=== PATIENT | female | born 1985 | race Caucasian/White ===

== ENCOUNTER 2017-10-25 13:47 | Emergency (ER) | payer BC ==
[2017-10-25 14:19] LABS: #Lymphocytes 0.6 thou/uL (1.20-3.40); #Monocytes 0.3 thou/uL (0.11-0.59); #Neutrophils 6.6 thou/uL (1.40-6.50); %Basophils 0.6 % (0.0-1.0); %Eosinophils 0.3 % (0.0-10.0); %Lymphocytes 7.5 % (21.0-51.0); %Monocytes 3.9 % (0.0-10.0); %Neutrophils 87.7 % (42.0-75.0); Hemoglobin 11.4 g/dL (12.0-16.0); Mean Corpuscular HGB CONC 32.9 g/dL (32.0-36.0); Mean Corpuscular Hemoglobin 30.8 pg (27.0-31.0); Mean Corpuscular Volume 93.7 fL (78.0-98.0); Mean Platelet Volume 6.8 fL (7.4-10.4); Platelet Count 235 thou/uL (130-400); RBC Distribution Width 11.3 % (11.5-14.5); Red Blood Cell (RBC) Count 3.71 mill/uL (4.20-5.40); White Blood Cell (WBC) Count 7.6 thou/uL (4.8-10.8)
[2017-10-25 14:27] LABS: Base Excess-Venous -3.2 mmol/L (0 (+/- 2.5)); Bicarbonate (HCO3v) 18.8 mmol/L (1.0-85.0); CO2 Tension (PvCO2) 24.7 mmHg (41.0-51.0); Calcium, Ionized 1.15 mmol/L (1.12-1.32); Hemoglobin - Calc 11.9 g/dL (12.0-18.0); O2 Tension (PvO2) 33.9 mmHg (35.0-45.0); T. Carbon Dioxide 19.5 mmol/L (1.0-85.0); pH (Venous) 7.488 (7.35-7.45); vO2 Saturation-calc 72.2 % (94-98)
[2017-10-25 14:36] LABS: ALT (SGPT) 18 U/L (8-55); AST (SGOT) 20 U/L (5-34); Albumin 4.2 g/dL (3.5-5.0); Alkaline Phosphatase 40 U/L (40-150); Anion Gap 14 mmol/L (10-20); BUN (Urea Nitrogen) 9 mg/dL (7.0-18.7); Bilirubin, Total 1.1 mg/dL (0.2-1.2); Calc. Creatinine Clearance 0 mL/min (70-130); Calcium 9.3 mg/dL (7.8-10.44); Carbon Dioxide 20 mmol/L (22-29); Chloride 105 mmol/L (98-107); Estimated GFR-MDRD 84; Globulin 2.1 g/dL (2.4-3.5); Glucose 91 mg/dL (70-105); Potassium 3.1 mmol/L (3.5-5.1); Protein, Total 6.3 g/dL (6.0-8.3); Sodium 136 mmol/L (136-145)
[2017-10-25 14:52] LABS: Pregu Control Background? CLEAR/WHITE (CLR/WHITE); Pregu Control Bar Appear? YES (CONTROL BAR)
[2017-10-25 14:53] LABS: Pregnancy Test - Urine (BHCG) Negative (Negative)
[2017-10-25 14:55] LABS: Bilirubin Negative (Negative); Blood, Urine Trace (Negative); Clarity Clear (Clear); Glucose, Urine (Dipstick) Negative (Negative); Leukocyte Negative (Negative); Nitrite Negative (Negative); Protein, Urine (Dipstick) Negative (Neg-Trace); Urobilinogen 0.2 mg/dL (0.2-1.0); pH, Urine 7.5 (5.0-9.0)
[2017-10-25 15:00] LABS: Bacteria/HPF None Seen HPF (None Seen); Crystals/HPF None Seen HPF (Negative); Hyaline Casts/LPF NONE SEEN LPF (0-3 Hyaline); Other Casts/LPF None Seen LPF (0-3 Hyaline); Oval Fat Bodies/HPF None Seen HPF (None Seen); RBC/HPF None Seen HPF (0-3); Renal Epithelial None Seen HPF (0-3); Sperm/HPF None Seen HPF (None Seen); Squamous Epithelial 0-3 HPF (0-3); Transitional Epithelial NONE SEEN HPF (0-3); Trichomonas/HPF None Seen HPF (None Seen); WBC/HPF None Seen HPF (0-3); Yeast-All Forms None Seen HPF (None Seen)
[2017-10-25] MEDS ORDERED: Promethazine HCl 25 MG/ML VIAL ONE (15:11)
[2017-10-25] MEDS ORDERED: Ketorolac Tromethamine 30 MG/ML VIAL ONE (15:12)
== END 2017-10-25 15:30 | disposition home or self-care (01) ==
LOC: BURERS 13:47
DX: T67.5XXA Heat exhaustion, unspecified, initial encounter (principal); R06.4 Hyperventilation
CPT/HCPCS: 80053; 81003; 81015; 81025; 82330; 82803; 85025; 85379; 96361; 96374; J1885; J2550